=== PATIENT | female | born 2005 | race Caucasian/White ===

== ENCOUNTER 2024-09-04 19:01 | Emergency (ER) | payer OTHER, SELFPAY ==
--- NOTE | ~2024-09-04 | US_ITS ---
CLINICAL HISTORY: pain US pelvis transabdominal and transvaginal with Doppler Comparison: None Findings: Transabdominal scanning performed for overall anatomy. Transvaginal scanning performed for additional detail. Anteverted and anteflexed uterus is 7.8 cm length. Portions of the myometrium obscured by side of the artifacts. Imaged endometrium measures 1.2 cm thickness Right ovary measures 4.0 x 2.3 x 1.7 cm. Left ovary measures 3.9 x 2.2 x 2.0 cm. Small cystic structures of the both ovaries likely due to follicles. No significant free fluid in the partially imaged pelvis. Imaged urinary bladder is unremarkable. Doppler arterial waveform of the right ovary demonstrates peak systolic velocity of 12 centimeters/second and resistive index of 0.6. Doppler arterial waveform of the left ovary demonstrates peak systolic velocity of 8 centimeters/second and resistive index of 0.8, accounting for aliasing artifacts. IMPRESSION: 1. No ultrasound findings of ovarian torsion. 2. imaged endometrium measures 1.2 cm thickness at this time. This document has been electronically signed by: Zac Bruce MD on 09/04/2024 23:27:50
--- NOTE | ~2024-09-04 | XR_ITS ---
CLINICAL HISTORY: pain 1 view abdomen Comparison: None Findings: No small bowel dilatation in the imaged abdomen. Severe stool burden present, including imaged cecum. Posterior element lucency of the S1 is nonspecific and nonacute IMPRESSION: 1. No small bowel obstruction. 2. Severe stool burden. This document has been electronically signed by: Zac Bruce MD on 09/04/2024 20:07:43
[2024-09-04 19:15] VITALS: BP 129/86; PULSE 83; RESP 19; TEMP 36.6; O2SAT 98; BMI 18.9
--- NOTE | 2024-09-04 19:17 | ED.GENADULT ---
HPI - General Adult General Chief complaint: Abdominal Pain Stated complaint: ls abdominal pain, cyst on ovary Time Seen by Provider: 09/04/24 22:47 Source: patient Limitations: no limitations History of Present Illness ED Provider: Manuela Maurer PA-C HPI narrative: 18-year-old female with a history of ovarian cysts presents with the abdominal pain x5 days. Pain most prominent over left mid to lower abdomen, is nonradiating. No associated nausea vomiting. Denies constipation or diarrhea, no fever. Last bowel movement today. No new vaginal discharge, no dysuria. Related Data Allergies Allergy/AdvReac Type Severity Reaction Status Date / Time No Known Allergies Allergy Verified 09/04/24 19:18 Review of Systems Review of Systems: Yes all other systems are reviewed and are negative Constitutional: Constitutional: Denies fatigue and Denies fever(s) Cardiovascular: Cardiovascular: Denies chest pain and Denies dyspnea Respiratory: Respiratory: Denies dyspnea Gastrointestinal: Gastrointestinal: Reports abdominal pain, Denies constipation, Denies diarrhea, Denies nausea and Denies vomiting Genitourinary: Genitourinary: Denies dysuria, Reports pelvic pain and Denies vaginal discharge Endocrine: Endocrine: Denies fatigue PMFSH Social History Social History Advance Directives: No Advance Directives Information Provided: No Do you have a plan to hurt others: No Plan Physical Exam ED Vital Signs: Vital Signs - 24 hr 09/04/24 19:15 09/04/24 22:15 09/05/24 00:08 Temperature 98 F 97.8 F 97.9 F Pulse Rate 83 75 90 Respiratory Rate 19 15 18 Blood Pressure 129/86 130/67 109/60 Pulse Oximetry 98 100 100 Oxygen Delivery Method Room Air Room Air Room Air BMI result Body Mass Index 18.9 Course Course Course Narrative: RME, this is a rapid medical exam performed by Mode Lemon please refer to primary provider for complete H&P- 18 year old female presents for evaluation of left lower abdominal pain. She reports a history of ovarian cysts. Her pain is worse with movement. Denies associated symptoms including nausea, vomiting, diarrhea. Last bowel movement was reportedly today and was normal Medical Decision Making Medical Decision Making MDM Narrative: 18-year-old female with a history of ovarian cysts presents with the abdominal pain x5 days. Pain most prominent over left mid to lower abdomen, is nonradiating. No associated nausea vomiting. Denies constipation or diarrhea, no fever. Last bowel movement today. No new vaginal discharge, no dysuria. Problem: Ovarian cyst History: Per patient I have considered the following differential diagnoses: Torsion, PID, TOA, pancreatitis, constipation, bowel obstruction Plan: Screening labs, a KUB and transvaginal ultrasound were obtained from triage, the patient is constipated. She is not having any obstructive symptoms. We will send with home care instructions. I have independently reviewed the following tests: Labs: No leukocytosis, not anemic, no electrolyte abnormality, liver function tests normal, not , viral panel negative KUB: indings: No small bowel dilatation in the imaged abdomen. Severe stool burden present, including imaged cecum. Posterior element lucency of the S1 is nonspecific and nonacute IMPRESSION: 1. No small bowel obstruction. 2. Severe stool burden. Transvaginal ultrasound:IMPRESSION: 1. No ultrasound findings of ovarian torsion. 2. imaged endometrium measures 1.2 cm thickness at this time. Lab Data 09/04/24 19:35 09/04/24 19:35 Labs: Lab Results 09/04/24 Range/Units 19:35 WBC 6.3 (4.8-10.8) X10*3/uL RBC 4.15 L (4.20-5.50) X10*6/uL Hgb 12.8 (12.0-16.0) g/dl Hct 37.4 (37.0-47.0) % MCV 90.1 (80.0-98.0) fL MCH 30.8 (27.0-33.0) pg MCHC 34.2 (31.0-35.0) g/dl RDW 12.2 (11.0-16.0) % Plt Count 205 (160-400) X10*3/uL MPV 10.0 (9.4-12.3) fL Immature Gran % (Auto) 0.2 (0.0-0.4) % Neut % (Auto) 53.5 (45-73) % Lymph % (Auto) 37.4 (20-40) % Edmunds % (Auto) 5.9 (2-11) % Eos % (Auto) 1.6 (0-4) % Baso % (Auto) 1.4 (0-2) % Lymph # (Auto) 2.4 (1.2-4.9) X10*3/uL Edmunds # (Auto) 0.4 (0.1-1.2) X10*3/uL Eos # (Auto) 0.1 (0.0-0.4) X10*3/uL Baso # (Auto) 0.1 (0.0-0.2) X10*3/uL Abs Immat Gran (auto) 0.01 (0.00-0.03) X10*3/uL Absolute Neuts (auto) 3.4 (2.0-8.3) x10*3/uL Absolute Nucleated RBC 0.000 (0.0-0.012) X10*3/uL Nucleated RBC % (auto) 0.0 (0.0-0.2) /100WBC Sodium 140 (135-145) mmol/L Potassium 3.9 (3.3-5.1) mmol/L Chloride 111 H (96-108) mmol/L Carbon Dioxide 24 (22-29) mmol/L Anion Gap 9 L (12-20) BUN 8 L (9-16) mg/dL Creatinine 0.71 (0.5-1.4) mg/dL Estim Creat Clear Calc 100.4 Estimated GFR > 60 Random Glucose 96 (60-115) mg/dL Calcium 8.7 (8.4-10.2) mg/dL Total Bilirubin 0.4 (0.0-1.0) mg/dL AST 16 (5-31) U/L ALT 12 (0-31) U/L Alkaline Phosphatase 59 (39-117) U/L Total Protein 7.1 (6.5-8.0) g/dL Albumin 4.2 (3.5-5.0) g/dL Lipase 13 (8-78) U/L Beta HCG, Quant < 2 mIU/mL Urine Color Yellow Urine Appearance Clear Urine pH 7.0 (5.0-9.0) Ur Specific [place] 1.020 (1.005-1.025) Urine Protein Negative (Neg-Trace) mg/dL Urine Glucose (UA) Negative (Negative) mg/dL Urine Ketones Negative (Negative) mg/dL Urine Blood Negative (Negative) Urine Nitrite Negative (Negative) Ur Leukocyte Esterase Negative (Negative) Urine RBC 0-2 (0-2) /HPF Urine WBC 0-5 (0-5) /HPF Ur Squamous Epith Cells 0-2 (0-2) /HPF Urine Bacteria None Seen (None Seen) Hyaline Casts 0-2 (0-2) /LPF Discharge Plan Discharge Clinical Impression: Constipation Patient Disposition: Home, Self-Care Instructions: Constipation (ED) Additional Instructions: The pelvic ultrasound was normal, the x-ray revealed that you were considerably constipated. All of your screening labs including liver function testing, were all normal. See home care instructions. You need to use [id number] Colace, twice daily. You need to use [id number] MiraLax, has followed: Drink 1 cup every hour until you begin having multiple large volume bowel movements. Or you could gradually alleviate your constipation by drinking the MiraLax several times a day. Follow up with your primary care provider as needed. Stand Alone Forms: Work/School Release Print Language: Andorran
[2024-09-04 19:40] LABS: MANUAL DIFF FLAG NO
[2024-09-04 19:46] LABS: Appearance Urine Clear; Basophils Absolute Auto 0.1 X10*3/uL (0.0-0.2); Basophils Percent Auto 1.4 % (0-2); Color Urine Yellow; Eosinophils Absolute Auto 0.1 X10*3/uL (0.0-0.4); Eosinophils Percent Auto 1.6 % (0-4); Glucose Urine UA Negative (Negative); Hematocrit 37.4 % (37.0-47.0); Hemoglobin 12.8 g/dl (12.0-16.0); Imm Gran Abs Auto 0.01 X10*3/uL (0.00-0.03); Imm Gran Pct Auto 0.2 % (0.0-0.4); Leukocyte Esterase Urine Negative (Negative); Lymphocytes Absolute Auto 2.4 X10*3/uL (1.2-4.9); Lymphocytes Percent Auto 37.4 % (20-40); Mean Corpuscular HGB Conc 34.2 g/dl (31.0-35.0); Mean Corpuscular Hemoglobin 30.8 pg (27.0-33.0); Mean Corpuscular Volume 90.1 fL (80.0-98.0); Monocytes Absolute Auto 0.4 X10*3/uL (0.1-1.2); Monocytes Percent Auto 5.9 % (2-11); Neutrophils Absolute Auto 3.4 x10*3/uL (2.0-8.3); Neutrophils Percent Auto 53.5 % (45-73); Nitrite Urine Negative (Negative); Platelet Count 205 X10*3/uL (160-400); Red Blood Count 4.15 X10*6/uL (4.20-5.50); Red Cell Distribution Width 12.2 % (11.0-16.0); Urine Blood Negative (Negative); Urine Ketones Negative (Negative); Urine Protein Negative (Neg-Trace); White Blood Count 6.3 X10*3/uL (4.8-10.8)
[2024-09-04 20:00] LABS: Bacteria Urine None Seen (None Seen); Hyaline Casts Urine 0-2 /LPF (0-2); RBC Urine 0-2 /HPF (0-2); Squamous Epithelial Cell Urine 0-2 /HPF (0-2); WBC Urine 0-5 /HPF (0-5)
[2024-09-04 20:11] LABS: Alanine Aminotransferase 12 U/L (0-31); Albumin Level 4.2 g/dL (3.5-5.0); Alkaline Phosphatase 59 U/L (39-117); Anion Gap 9 (12-20); Aspartate Amino Transferase 16 U/L (5-31); Bilirubin Total 0.4 mg/dL (0.0-1.0); Blood Urea Nitrogen 8 mg/dL (9-16); Calcium 8.7 mg/dL (8.4-10.2); Carbon Dioxide 24 mmol/L (22-29); Chloride 111 mmol/L (96-108); Creatinine Clr Calc Pharmacy 100.4; Estimated Glomerular Filt Rate > 60; Glucose Random 96 mg/dL (60-115); Lipase 13 U/L (8-78); Potassium 3.9 mmol/L (3.3-5.1); Sodium 140 mmol/L (135-145); Total Protein 7.1 g/dL (6.5-8.0)
[2024-09-04 20:13] LABS: HCG Quantitative < 2 mIU/mL
[2024-09-04 22:15] VITALS: BP 130/67; PULSE 75; RESP 15; TEMP 36.6; O2SAT 100
--- OUTSIDE RECORDS SUMMARY | 2024-09-04 22:22 | XMS_ITS | Clinical Summary ---
Author Organization [facility] Address [address] [place] [phone] Phone Care Team Providers Care Carton Catcher Name Role Phone Provider, Rosaura MCCULLOUGH Primary Care Provider [phone] Allergies No known active allergies Medications ibuprofen 200 MG capsule Take 400 mg by mouth every 6 (six) hours as needed. Active acetaminophen 500 MG chewable tablet Chew 500 mg every 6 (six) hours as needed for mild pain. Active Needle, Disp, (B-D HYPODERMIC NEEDLE 18GX1.5 ) 18G X 1-/2 misc Inject 1 Units as directed every 7 days. 3 Active Needle, Disp, (BD Disp [place]) 25G X 5/8 misc Inject 1 Units as directed every 7 days. 3 Active testosterone cypionate 200 MG/ML injection Inject 40 mg under the skin once a week. 2 Active Syringe, Disposable, (B-D SYRINGE SLIP TIP 1CC) 1 ML misc Inject 1 Units as directed every 7 days. 3 Active B-D INTEGRA SYRINGE 25G X 5/8 3 ML misc USE DIRECTED TO INJECT TESTOSTERONE VIA SUBCUTANEOUS ROUTE 2 Active doxycycline 100 MG tablet TAKE 1 TABLET BY MOUTH TWICE A DAY FOR 7 DAYS 3 Active cephalexin 500 MG capsule TAKE 1 CAPSULE (ORAL) 3 TIMES PER DAY FOR 10 DAYS FOR INFECTION 2 Active Active Problems Problem Noted Date Diagnosed Date Vitamin D insufficiency 11/28/2021 Overview (12/05/2022): Last Assessment & Plan: Start over the counter Vitamin D 2,000 IU daily. Gender dysphoria in adolescent and adult 022 Overview (07/01/2021): refer Cy and his mom to the new [facility] for further exploration of gender affirming/ masculinizing medical therapy Patellofemoral syndrome of both knees 07/30/2020 Overview (03/02/2021): 07/2020: Suspeced and confirmed by ANGELO consult 01/2021- Recommend ibuprofen 400mg with food PRN and OTC knee supports for now, PT recommended by Ortho Acne vulgaris 05/06/2019 Overview (12/05/2022): Last Assessment & Plan: Continue CeraVe If acne is getting worse, call for prescription-strength medication Resolved Problems Problem Noted Date Diagnosed Date Resolved Date Dysmenorrhea in adolescent 05/06/2019 0 07/01/2021 Assessment & Plan (05/06/2019 6:52 PM EST): Supportive care for now with fluids and NSAIDS PRN. Mom to check with PGM regarding further details on blood clot history in PGF. Encounters Date Type Department Care Team Description 09/04/2024 7:01 PM EDT - Present Hospital Encounter [facility] - Patient Ping from Last 3 Months Immunizations Immunization Administration Dates Next Due DTaP 03/23/2010, 7,07/21/2005,05/17,02/17/2005 HPV Vaccine 9 Valent 03/28/2018,03/14/2017 Hep A, ped/adol 03/28/2018,03/14/2017 Hep B, ped/adol 07/17/2005,02/17/2005,2004 HiB 09/27/2006, 6,05/17/2005,02/17 IPV 03/23/2010, 6,05/17/2005,02/17 Influenza, injectable, quadr ivalent, preservative free 06/30/2021,03/08/2020 Influenza, injectable, trivalent 03/23/2010 MMR 03/23/2010,01/18/2006 Meningococcal Conj (Menactra) MCV4P 03/14/2017 Pneumococcal Conjugate 13-Valent 007,07/21/2005,05/17/2005,02/17 Tdap 03/14/2017 Varicella 03/23/2010,01/18/2006 Family History Medical History Relation Name Comments No Known Problems Father Alyssa No Known Problems Mother Brianna No Known Problems Sister 1 Jacquie No Known Problems Sister 2 chris Relation Name Status Comments Father Alyssa Alive Maternal Grandfather Manolo Redmond (Age 84) H eart Disease- leaky heart valves Maternal Grandmother Kala Redmond Kelly rice Mother Brianna Alive Sister 1 Jacquie Alive Sister 2 chris Alive Social History Tobacco Use Types Packs/Day Years Used Date Smoking Tobacco: Never Smokeless Tobacco: Never Hunger/Food Answer Date Recorded In the last 12 months, did y ou or your family ever eat less than you felt you should because there wasn't enough money for food? No 04/19/2019 Stable Housing Answer Date Recorded Are you worried that in the next 2 months you may not have stable housing? No 04/19/2019 Transportation Concerns Answer Date Rec orded In the last 12 months, have you or your family ever had to go without healthcare because you didn't have a way to get there? No 04/19/2019 Hazards in Home Answer Date Recorded Think about the place you li ve. Do you have problems with any of the following? Pests (mice or roaches), mold, no/not working smoke detectors, water leaks, no window guards. No 2018 Financing Utilities Answer Date Recorde d In the last 12 months, has t he electric, gas, oil, or water company threatened to shut off your services in your home? Yes 04/19/2019 Safety at Home Answer Date Recorded Are you or your family worried about feeling saf e in your home? No 04/19/2019 Outside Support Answer Date Recorded Do you feel that you need mo re support from other people or programs to help you care for yourself or your family? No 04/19/2019 Understanding Health Concerns Answer Da te Recorded Do you need help understandi ng your or your child's healthcare needs (diagnosis, medications, plan, etc.)? No 04/19/2019 Financing Health Concerns Answer Date R ecorded In the last 12 months, was t here a time when your child needed to see a doctor or get medications or supplies but could not because of cost? No 04/19/2019 Missing School or Work Answer Date Jordan rded Did you or your child miss s chool or work because of a health problem that could have been avoided? No 04/19/2019 Comments No Sex and Gender Information Value Date Recorded Sex Assigned at Not on file Legal Sex Female 3:34 PM EDT Gender Identity Not on file Sexual Orientation Not on file Last Filed Vital Signs Vital Sign Reading Time Taken Comments Blood Pressure 120/68 06/30/2021 2:50 PM EST Pulse 79 06/30/2021 2:50 PM EST Temperature 36.9 ??C (98.4 ??F) 12/06/2022 4:03 PM ED T Respiratory Rate - - Oxygen Saturation - - Inhaled Oxygen Concentration - - Weight 49.5 kg (109 lb 3.2 oz) 12/06/2022 4:03 P M EDT Height 160 cm (5' 3 ) 06/30/2021 2:50 PM EST Body Mass Index - - Plan of Treatment Health Maintenance Due Date Last Done Comments Men B Vaccine (1 of 2 - Standard) 2020 Influenza Vaccines (#1) 2024 06/30/19, 03/08/2020, 03/23/2010 COVID-19 Vaccine (3 - season) 2024 01/21/2021, 12/31/2020 Chlamydia and Gonorrhea Screening 06/26/2024 12/06/2022 DTaP,Tdap,and Td Vaccines (7 - Td or Tdap) 03/14/2027 03/14/2017, 03/23/2010, 09/27/2006, Additional history exists Hepatitis B Vaccines Completed 07/17/2005, 02/17/2005, 2004 HIB Vaccines Completed 09/27/2006, 06/27, 05/17/2005, Additional history exists Pneumococcal Vaccine Completed 09/27/2006, 07/21/2005, 05/17/2005, Additional history exists IPV Vaccines Completed 03/23/2010, 06/27, 05/17/2005, Additional history exists MMR Vaccines Completed 03/23/2010, 01/18/2006 Varicella Vaccines Completed 03/23/2010, 01/18/2006 Meningococcal Vaccine Aged Out 03/14/2017 No kristofer regina eligible based on patient's age to complete this topic HPV Vaccines Completed 03/28/2018, 03/14/2017 Hepatitis A Vaccines Completed 03/28/2018, 03/14/20 17 Procedures * The patient is currently admitted. The information in this section might not be complete until the patient is discharged.Due to [place] [employer] law, this organization might not be sharing sensitive test results. Procedure Name Priority Date/Time Associated Diagnosis Comments SURESWAB (ADV) VAGINITIS PLUS, TMA Routine 12/06/2022 5:02 PM EDT Vaginal discharge from Last 3 Months or Most Recently Relevant to Health Maintenance Results * Due to [place] [employer] law, this organization might not be sharing sensitive test results. * (ABNORMAL) SureSwab Advanced (TMA)- BV, CT/NG, Emeka, Trich (12/06/2022 5:02 PM EDT) BACTERIAL VAGINOSIS TEST POSITIVE(A) (NEG) [facility] Comment: Bacterial vaginosis targets by PCR detected in this patient's sample. ?? Note: This assay uses real time mobile home mechanic-mediated amplification (TMA) for detection and quantification of ribosomal RNA from bacteria associated with bacterial vaginosis (BV), including Lactobacillus (L. gasseri, L. crispatus, and L. jensenii), Gardnerella vaginalis, and Atopobium vaginae. Emeka Species NEGATIVE (NEG) [facility] Comment: No emeka species group (C. albicans, C. tropicalis, C. parapsilosis, C. dubliniensis) targets by PCR detected in this patient's sample. Emeka Glabrata, LANCE NEGATIVE (NEG) [facility] Comment:No Emeka glabrata targets by PCR detected in this patient's sample. SureSwab, T.vaginalis RNA NEGATIVE (NEG) [facility] Comment: No Trichomonas vaginalis targets by PCR detected in this patient's sample. ?? Note: This assay uses real time mobile home mechanic-mediated amplification (TMA) for detection and quantification of ribosomal RNA from organisms associated with Emeka species group (C. albicans, C. tropicalis, C. parapsilosis, C. dubliniensis), Emeka glabrata, and Trichomonas vaginalis. Chlamydia Trachomatis, Amplified NEGATIVE (NEG) [facility] Comment: No Chlamydia Trachomatis RNA detected in this patient's sample ? (REFERENCE RANGE/NORMAL VALUE: NOT DETECTED) ? Note: This test uses mobile home mechanic- mediated amplification method to detect rRNA from C. Trachomatis N.GONORRHOEAE AMP PROBE NEGATIVE (NEG) [facility] Comment: No Neisseria Gonorrhoeae RNA detected in this patient's sample ? (REFERENCE RANGE/NORMAL VALUE: NOT DETECTED) ? NOTE: This test uses mobile home mechanic-mediated amplification method to detect rRNA from N.Gonorrhoeae. A negative result does not preclude infection. In the case of a negative urine result, testing of an endocervical(female) or urethral (male) specimen is recommended if there is high clinical suspicion of infection. Due to very high sensitivity of Nucleic Acid Amplification Test, false positive results may occur. Therefore, specimen handling is extremely important. In patients in whom the disease is unlikely, additional sample for testing should be considered after an initial positive result. The performance characteristics of this test have not been evaluated in children. The Aptima Combo2 assay is not intended for the evaluation of suspected sexual abuse or for other medico-legal indications. The ordering provider should assess if the patient had consensual sex without risk of sexual abuse. Consult the [facility] if needed. Contact phone number . Therapeutic failure or success cannot be determined with the Aptima Combo2 assay since nucleic acid may persist following appropriate antimicrobial therapy. The Centers for Disease Control and Prevention (CDC) recommends confirmatory retesting using culture or a different nucleic acid amplification test when positive results occur, if indicated. Testing performed or reported by [facility], a Service of [facility], [facility] [address], [place] [address] Vince Hamilton MD, Telegraph Operator [facility]# [id number] Swab (Vagina) 12/06/2022 5:0 2 PM EDT 12/06/2022 11:47 PM EDT Anita Peña MD LAB MICROBIOLOGY - GENERAL OR DERABLES Final Result DARRION from Last 3 Months or Most Recently Relevant to Health Maintenance Insurance [employer] Care Teams Carton Catcher Relationship Specialty Start Date End Date Provider, MD Rosaura [address] [place] [phone] PCP - General Pediatrics 02/01/23
[2024-09-05 00:08] VITALS: BP 109/60; PULSE 90; RESP 18; TEMP 36.6; O2SAT 100
[2024-09-05 01:38] VITALS: BP 109/60; PULSE 90; RESP 18; TEMP 36.6; O2SAT 100
== END 2024-09-05 01:39 | disposition home or self-care (01) ==
PROVIDERS: Physician Assistant; Emergency Provider Emergency Medicine Emergency Medical Services
DX: K59.00 Constipation, unspecified (principal); N83.202 Unspecified ovarian cyst, left side; R10.2 Pelvic and perineal pain; R10.32 Left lower quadrant pain; Z79.899 Other long term (current) drug therapy
CPT/HCPCS: 36415; 74018; 76830; 76856; 80053; 81001; 83690; 84702; 85025; 93975; 99283; 99284

== ENCOUNTER → 2024-09-04 19:19 | Outpatient (BNV) | payer SELFPAY | PROVIDERS: Visit Provider Radiology Neuroradiology | DX: K56.41 Fecal impaction (principal) | CPT/HCPCS: 74018 ==

== ENCOUNTER 2024-12-20 18:01 | Inpatient (IN) | payer OTHER, SELFPAY ==
--- NOTE | ~2024-12-20 | CT_ITS ---
CLINICAL HISTORY: rlq pain, ? appy --- Additional Notes or Special Instructions: PT IV INFILTRATED CT abdomen and pelvis without contrast Comparison: CR - XR KUB - 09/04/24 19:41 EDT US - US PELVIC OVARIAN DOPPLER - 09/04/24 19:31 EDT Findings: Study limited by lack of intravenous contrast. Specifically, evaluation of the vascular tree, solid abdominal organs, and gastrointestinal tract be limited without IV contrast. This is especially true given the clinical history provided of right lower quadrant abdominal pain with concern for appendicitis. The enhancement schema of the appendiceal wall can not be assessed on a noncontrast study. CT abdomen: Lung bases are clear. [id number] convex left thoracolumbar curvature with minor convex right lower lumbar curvature. No acute bony abnormality identified. No calcified gallstones. Unenhanced liver, spleen, pancreas, adrenal glands, and kidneys are unremarkable for acute findings given the limitation of mild patient motion during imaging of the midabdomen. Small bowel loops are of normal caliber. No free fluid or free air. CT pelvis: Images of the upper pelvis are also limited by patient motion. As seen on the patient's prior abdominal radiographs, there is prominent stool throughout the colon. Wall thickening of the distal transverse colon extending into the splenic flexure. Sixteen throughout the descending colon to the proximal sigmoid colon. No focal area of diverticulitis is evident. The appendix is suboptimally visualized. There is a tubular structure within the right lower quadrant which I believe is the appendix. Small increased density seen within the appendix suggests a 2 mm appendicolith. Appendix measures 5.8 mm in transverse measurement. No focal inflammatory stranding is seen within the mesenteric fat within the right lower quadrant. No free air. Small amount of free fluid in the posterior cul-de-sac. IMPRESSION: 1. Study limited by lack of intravenous contrast. 2. Equivocal findings of appendicitis. Although an appendicolith is identified within the appendix, there is no significant appendiceal dilation, and no adjacent inflammatory stranding is evident. Consider repeat CT of the abdomen and pelvis with intravenous contrast for further evaluation if there is persistent clinical concern for appendicitis. Specifically, the enhancement schema of the appendiceal wall can be assessed on a postcontrast study which can aid in the evaluation of appendicitis. 3. Prominent colonic stool with long segment colitis extending from the distal transverse colon to the proximal sigmoid colon. Please note that this is on the contralateral side from the patient's reported pain. Clinical correlation advised. This document has been electronically signed by: Adan Cervantes MD on 12/20/2024 21:37:27
[2024-12-20 18:26] VITALS: BP 120/52; PULSE 92; RESP 16; TEMP 37; O2SAT 100; BMI 20.6
--- NOTE | 2024-12-20 18:27 | ED.ABDPAIN ---
HPI - Abdominal Pain General Chief Complaint: Abdominal Pain Stated Complaint: lower right abd pain Time Seen by Provider: 12/20/24 19:34 History of Present Illness HPI narrative: Patient is a 18-year-old female presents today with having abdominal pain. Initially began in the epigastric periumbilical area then moved to the right lower quadrant. The pain started at approximately 15:30. Patient denies any fever chills. Denies any vaginal bleeding no vaginal discharge. Patient is from home. No coughing or congestion or upper respiratory symptoms. Positive decreased p.o. intake. No change in bowel movement. No chest pain or shortness of breath no diaphoresis. Patient is from home. Related Data Allergies Allergy/AdvReac Type Severity Reaction Status Date / Time No Known Allergies Allergy Verified 12/20/24 18:28 Review of Systems Review of Systems Positive decreased appetite Yes all other systems are reviewed and are negative [facility] [place] Past Medical History Attestation statement: The following information was validated with the patient. Social History Social History Advance Directives: No Advance Directives Information Provided: Yes Do you have a plan to hurt others: No Plan Physical Exam ED Vital Signs: Vital Signs - 24 hr 12/20/24 18:26 12/20/24 21:24 Temperature 98.6 F 98.0 F Pulse Rate 92 78 Respiratory Rate 16 16 Blood Pressure 120/52 L 116/68 Pulse Oximetry 100 98 Oxygen Delivery Method Room Air Room Air BMI result Body Mass Index 20.6 Appearance: Alert. Oriented X3. No acute distress. Eyes: Pupils equal, round and reactive to light. ENT: Pharynx normal. Neck: Normal inspection. Neck supple. No lymph nodes noted. No crepitus CVS: Normal heart rate and rhythm. Pulses normal. Normal S1 and S2 Respiratory: No respiratory distress. Breath sounds normal. No Wheezing. No rales Abdomen: Mild right lower quadrant tenderness no rebound No rigidity. No distention. good BS x4 Skin: Skin warm and dry. Normal skin color. Normal skin turgor. Extremities: No lower extremity edema. Neurovascular intact to all extremities. No Lacerations. No Rash Neuro: Oriented X 3. No motor deficit. No sensory deficit. Moving all extermities. No slurred speech Course Course Course Narrative: 12/20/24 093 SCOTT Guadalupe This is a Rapid Medical Examination (RME) performed by Yemi Denny PA-C in triage. Full HPI, ROS, assessment and treatment plan per primary provider in the Main ED. Hx: 18 yo F here for eval of RLQ pain that began around 1515 today. no radiation. no urinary sx. having regular BMs. Plan: labs, UA, u preg Medical Decision Making Medical Decision Making [facility] Narrative: Patient's CT was equivocal for appendicitis. Radiology's report there is appendicolith in the appendix but there is no gross inflammation she does have a white count of 16. He had pain that was periumbilical then moved to the right lower quadrant but her exam was not impressive. Her abdomen was soft. I discussed the case with the surgeon. She reviewed the CT scan. Will admit patient for observation. Patient in no distress. The CT abdomen pelvis was done with IV contrast but unfortunately the IV infiltrated. The contrast got into her arm and not in her abdomen. Will worry about giving her another bolus of CT contrast another CT. Decided to observe her instead. Patient to be admitted Differential Diagnosis Differential Diagnoses: The differential diagnosis associated with the presentation includes Appendicitis, viral illness, Admission/Observation Consideration of admission/observation: Escalation of care including admission/observation considered Consult Healthcare Provider Management of the patient was discussed with: Health Claims Examiner (Surgery) Lab Data [facility] Lab Attestation statement: I reviewed the patient's lab results. 12/20/24 18:57 12/20/24 18:57 Labs: Lab Results 12/20/24 12/20/24 Range/Units 18:57 19:02 WBC 16.2 H (4.8-10.8) X10*3/uL RBC 4.16 L (4.20-5.50) X10*6/uL Hgb 13.2 (12.0-16.0) g/dl Hct 36.8 L (37.0-47.0) % MCV 88.5 (80.0-98.0) fL MCH 31.7 (27.0-33.0) pg MCHC 35.9 H (31.0-35.0) g/dl RDW 12.5 (11.0-16.0) % Plt Count 221 (160-400) X10*3/uL MPV 10.3 (9.4-12.3) fL Immature Gran % (Auto) 0.5 H (0.0-0.4) % Neut % (Auto) 81.2 H (45-73) % Lymph % (Auto) 13.7 L (20-40) % [place] % (Auto) 3.8 (2-11) % Eos % (Auto) 0.4 (0-4) % Baso % (Auto) 0.4 (0-2) % Lymph # (Auto) 2.2 (1.2-4.9) X10*3/uL [place] # (Auto) 0.6 (0.1-1.2) X10*3/uL Eos # (Auto) 0.1 (0.0-0.4) X10*3/uL Baso # (Auto) 0.1 (0.0-0.2) X10*3/uL Abs Immat Gran (auto) 0.08 H (0.00-0.03) X10*3/uL Absolute Neuts (auto) 13.1 H (2.0-8.3) x10*3/uL Absolute Nucleated RBC 0.000 (0.0-0.012) X10*3/uL Nucleated RBC % (auto) 0.0 (0.0-0.2) /100WBC Sodium 139 (135-145) mmol/L Potassium 3.9 (3.3-5.1) mmol/L Chloride 109 H (96-108) mmol/L Carbon Dioxide 24 (22-29) mmol/L Anion Gap 10 L (12-20) BUN 7 L (9-16) mg/dL Creatinine 0.75 (0.5-1.4) mg/dL Estim Creat Clear Calc 103.6 Estimated GFR > 60 Random Glucose 91 (60-115) mg/dL Calcium 8.9 (8.4-10.2) mg/dL Magnesium 1.7 (1.6-2.6) mg/dL Total Bilirubin 0.3 (0.0-1.0) mg/dL AST 15 (5-31) U/L ALT 9 (0-31) U/L Alkaline Phosphatase 49 (39-117) U/L C-Reactive Protein 0.10 (< or = 0.50) mg/dL Total Protein 6.8 (6.5-8.0) g/dL Albumin 4.1 (3.5-5.0) g/dL Urine Color Yellow Urine Appearance Clear Urine pH 5.5 (5.0-9.0) Ur Specific [place] 1.020 (1.005-1.025) Urine Protein Negative (Neg-Trace) mg/dL Urine Glucose (UA) Negative (Negative) mg/dL Urine Ketones Negative (Negative) mg/dL Urine Blood Trace H (Negative) Urine Nitrite Negative (Negative) Ur Leukocyte Esterase Trace H (Negative) Urine RBC 0-2 (0-2) /HPF Urine WBC 0-5 (0-5) /HPF Ur Squamous Epith Cells 0-2 (0-2) /HPF Urine Bacteria None Seen (None Seen) Hyaline Casts 0-2 (0-2) /LPF Urine Test NEGATIVE (NEGATIVE) Radiology Impression Discussion of test interpretation with radiology: I have reviewed the radiologist's reading. Social Determinants Patient?s care significantly limited by Social Determinants of Health including: Problems related to primary support group Medications Administered Discontinued Medications Generic Name Dose Route Start Last Admin Trade Name Keren PRN Reason Stop Dose Admin Sodium Chloride 1,000 mls @ 999 mls/hr 12/20/24 20:15 12/20/24 21:36 Ns IV 12/20/24 21:15 999 mls/hr .Q1H1M MADISYN Administration Iohexol 100 ml 12/20/24 20:23 12/20/24 20:24 Iohexol 350 Mg/Ml 100 Ml Infus..Btl IV 12/20/24 20:24 85 ml ONCE ONE Administration Ketorolac Tromethamine 15 mg 12/20/24 20:07 12/20/24 21:36 Ketorolac Tromethamine 15 Mg/Ml Vial IVPUSH 12/20/24 20:08 15 mg ONCE ONE Administration Ondansetron HCl 4 mg 12/20/24 19:49 12/20/24 19:54 Ondansetron Hcl 4 Mg/2 Ml Vial IVPUSH 12/20/24 19:50 4 mg ONCE ONE Administration Discharge Plan Discharge Clinical Impression: Acute appendicitis Patient Disposition: Admitted As Inpatient Print Language: Turkmen
[2024-12-20 19:01] LABS: MANUAL DIFF FLAG NO
[2024-12-20 19:08] LABS: Appearance Urine Clear; Color Urine Yellow; Glucose Urine UA Negative (Negative); Leukocyte Esterase Urine Trace (Negative); Nitrite Urine Negative (Negative); PH 5.5 (5.0-9.0); UMIC TRIGGER UACC YES; Urine Blood Trace (Negative); Urine Ketones Negative (Negative); Urine Protein Negative (Neg-Trace)
[2024-12-20 19:09] LABS: UPreg QC Valid YES; Urine Pregnancy NEGATIVE (NEGATIVE)
[2024-12-20 19:16] LABS: Alanine Aminotransferase 9 U/L (0-31); Albumin Level 4.1 g/dL (3.5-5.0); Alkaline Phosphatase 49 U/L (39-117); Anion Gap 10 (12-20); Aspartate Amino Transferase 15 U/L (5-31); Bilirubin Total 0.3 mg/dL (0.0-1.0); Blood Urea Nitrogen 7 mg/dL (9-16); Calcium 8.9 mg/dL (8.4-10.2); Carbon Dioxide 24 mmol/L (22-29); Chloride 109 mmol/L (96-108); Creatinine Clr Calc Pharmacy 103.6; Estimated Glomerular Filt Rate > 60; Glucose Random 91 mg/dL (60-115); Magnesium 1.7 mg/dL (1.6-2.6); Potassium 3.9 mmol/L (3.3-5.1); Sodium 139 mmol/L (135-145); Total Protein 6.8 g/dL (6.5-8.0)
[2024-12-20 19:19] LABS: Basophils Absolute Auto 0.1 X10*3/uL (0.0-0.2); Basophils Percent Auto 0.4 % (0-2); Eosinophils Absolute Auto 0.1 X10*3/uL (0.0-0.4); Eosinophils Percent Auto 0.4 % (0-4); Hematocrit 36.8 % (37.0-47.0); Hemoglobin 13.2 g/dl (12.0-16.0); Imm Gran Abs Auto 0.08 X10*3/uL (0.00-0.03); Imm Gran Pct Auto 0.5 % (0.0-0.4); Lymphocytes Absolute Auto 2.2 X10*3/uL (1.2-4.9); Lymphocytes Percent Auto 13.7 % (20-40); Mean Corpuscular HGB Conc 35.9 g/dl (31.0-35.0); Mean Corpuscular Hemoglobin 31.7 pg (27.0-33.0); Mean Corpuscular Volume 88.5 fL (80.0-98.0); Mean Platelet Volume 10.3 fL (9.4-12.3); Monocytes Absolute Auto 0.6 X10*3/uL (0.1-1.2); Monocytes Percent Auto 3.8 % (2-11); Neutrophils Absolute Auto 13.1 x10*3/uL (2.0-8.3); Neutrophils Percent Auto 81.2 % (45-73); Platelet Count 221 X10*3/uL (160-400); Red Blood Count 4.16 X10*6/uL (4.20-5.50); Red Cell Distribution Width 12.5 % (11.0-16.0); White Blood Count 16.2 X10*3/uL (4.8-10.8)
[2024-12-20 19:20] LABS: Bacteria Urine None Seen (None Seen); Hyaline Casts Urine 0-2 /LPF (0-2); RBC Urine 0-2 /HPF (0-2); Squamous Epithelial Cell Urine 0-2 /HPF (0-2); WBC Urine 0-5 /HPF (0-5)
[2024-12-20] MEDS: ondansetron HCL 4 MG/2 ML VIAL IVPUSH (19:54)
[2024-12-20] MEDS: iohexoL 350 MG/ML 100 ML INFUS..BTL IV (20:24)
[2024-12-20 21:24] VITALS: BP 116/68; PULSE 78; RESP 16; TEMP 36.7; O2SAT 98
[2024-12-20] MEDS: 0.9 % Sodium Chloride 1,000 ML 999 ML IV (21:36)
[2024-12-20] MEDS: Ketorolac Tromethamine 15 MG/ML VIAL IVPUSH (21:36)
--- NOTE | 2024-12-20 23:00 | PC.NURSE ---
Assumed care of patient at 23:00. Patient is alert and oriented x4, VSS. Patient reports 20 G US guided IV line in right upper arm infiltrated during CT scan with IV contrast leaking into the tissue. Patient reports increasing edema and pain in right upper arm., Patient states that pervious shift RN gave her heat packs with no improvement. This RN elevated patient's arm on 2 pillows and applied ice pack to affected area. Patient reports some improvement in pain. Patient's parent's at bedside, call [place] within patient's reach. Patient informed of NPO status, patient verbalized understanding.
[2024-12-21] VITALS (12 sets, daily range): BP systolic 105–131; BP diastolic 51–75; PULSE 69–100; RESP 15–20; TEMP 36.2–37.2; O2SAT 97–100
[2024-12-21] MEDS: Ketorolac Tromethamine 15 MG/ML VIAL IVPUSH (00:02)
[2024-12-21] MEDS: cefTRIAXone sodium 2 GM VIAL IVPUSH (00:02)
[2024-12-21] MEDS: ondansetron HCL 4 MG/2 ML VIAL IVPUSH ×2 (00:02→11:15)
[2024-12-21] MEDS: metroNIDAZOLE/NS 500 MG/100 ML PIGGYBACK 100 MG IV (00:02)
--- NOTE | 2024-12-21 00:37 | PC.NURSE ---
Per Dr. Ascencio, VBD for blood cultures and lactic is not needed prior IV antibiotics administration. Patient medicated per AUG.
[2024-12-21] MEDS: 0.9 % Sodium Chloride 1,000 ML 100 ML IVCONT ×3 (01:37→21:25)
[2024-12-21 04:05] LABS: MANUAL DIFF FLAG NO
[2024-12-21 04:07] LABS: Basophils Absolute Auto 0.1 X10*3/uL (0.0-0.2); Basophils Percent Auto 0.5 % (0-2); Eosinophils Percent Auto 0.1 % (0-4); Hematocrit 31.1 % (37.0-47.0); Imm Gran Abs Auto 0.03 X10*3/uL (0.00-0.03); Imm Gran Pct Auto 0.3 % (0.0-0.4); Lymphocytes Absolute Auto 2.2 X10*3/uL (1.2-4.9); Lymphocytes Percent Auto 21.3 % (20-40); Mean Corpuscular HGB Conc 35.4 g/dl (31.0-35.0); Mean Corpuscular Hemoglobin 30.8 pg (27.0-33.0); Mean Corpuscular Volume 87.1 fL (80.0-98.0); Mean Platelet Volume 10.4 fL (9.4-12.3); Monocytes Absolute Auto 0.5 X10*3/uL (0.1-1.2); Monocytes Percent Auto 4.5 % (2-11); Neutrophils Absolute Auto 7.5 x10*3/uL (2.0-8.3); Neutrophils Percent Auto 73.3 % (45-73); Platelet Count 186 X10*3/uL (160-400); Red Blood Count 3.57 X10*6/uL (4.20-5.50); Red Cell Distribution Width 12.3 % (11.0-16.0); White Blood Count 10.2 X10*3/uL (4.8-10.8)
--- NOTE | 2024-12-21 08:20 | PHA.MEDREC ---
Addendum entered by Sierra George RPh 12/21/24 08:41: Reviewed by [facility] within [facility] Original Note: Pharmacy Consult ? Medication Reconciliation Pharmacy has completed the medication reconciliation. Spoke with patient to confirm.
[2024-12-21] MEDS: Piperacillin Sodium/Tazobactam 3.375 GM in 0.9 % Sodium Chloride 50 ML IV ×3 (11:15→22:42)
[2024-12-21] MEDS: Acetaminophen 325 MG TABLET 650 MG PO (11:16)
--- NOTE | 2024-12-21 15:32 | MHC.CM.PN ---
Patient's preferred name is Cy. Lives in a home w/ parents. Functionally independent. Denies use of DME or services. No current PCP. Has an appt scheduled for mid February with a provider in [place]. Completed HCP naming [facility] 1) boyfriend Zach Vidal [phone] and 2) sister Anjali Reina [phone]. DP: Home self care. Family transport. CM will continue to follow.
[2024-12-21] MEDS: 0.9 % Sodium Chloride Flush 3 ML SYRINGE IVFLUSH ×2 (16:52)
--- NOTE | 2024-12-21 17:29 | P.HPGS_ITS ---
History of Present Illness History of Present Illness Date of Service: 12/21/24 Chief complaint: Abdominal Pain Narrative: Toña Maher (CY) is a 18 year old female who comes in with a day history of pain which started at her umbilical area and then migrated to her right lower quadrant. She also was nauseated. She has never had pain like this before. She said history of ovarian cysts which have ruptured but she says this pain is different. She denies any trauma to the area no unusual diarrhea constipation. No unusual diet. In the emergency room her white count is elevated and CT scan of her abdomen and pelvis shows signs consistent of possible early appendicitis with a fecalith in the appendix and slightly dilated tip. Review of Systems Review of Systems: Yes all other systems are reviewed and are negative PMFSH Social History Social History Household Members: Family and Other Household Members Other:: mother and father Housing: Apartment Do you presently have visiting nurse or other home services: No Patient Tobacco Use Status: Never used Tobacco Currently Displaying Signs/Symptoms of Drug Intoxication Withdrawal: No Have you been hit, kicked, punched, or otherwise hurt by someone within the past year? If so, by whom?: No Do you feel safe in your current relationship?: Yes Is there a partner from a previous relationship who is making you feel unsafe now?: No Are you made to feel afraid or neglected: No Advance Directives: No Advance Directives Information Provided: Yes Do you have a plan to hurt others: No Plan Recently lost weight without trying: No Nutrition Risks: No Nutritional Risk Patient : No : No Poor oral hygiene: No service: No Meds Allergies Allergy/AdvReac Type Severity Reaction Status Date / Time No Known Allergies Allergy Verified 12/20/24 18:28 Active Medications: Current Medications Acetaminophen (Acetaminophen 325 Mg Tablet) 650 mg PO Q6H PRN PRN Reason: Pain, Mild 1-3,fever,headache Last Admin: 12/21/24 11:16 Dose: 650 mg Sodium Chloride (Ns) 1,000 mls @ 100 mls/hr IVCONT .Q10H MADISYN Last Admin: 12/21/24 11:25 Dose: 100 mls/hr Piperacillin Sod/Tazobactam (Sod 3.375 gm/ Sodium Chloride) 50 mls @ 100 mls/hr IV Q6H [facility] Last Admin: 12/21/24 16:52 Dose: 100 mls/hr Ondansetron HCl (Ondansetron Hcl 4 Mg/2 Ml Vial) 4 mg IVPUSH Q8H PRN PRN Reason: Nausea and Vomiting Last Admin: 12/21/24 11:15 Dose: 4 mg Sodium Chloride (0.9 % Sodium Chloride Flush 3 Ml Syringe) 3 ml IVFLUSH QSHIFT [facility] Last Admin: 12/21/24 16:52 Dose: 3 ml Home Medications ?Medication ?Instructions ?Recorded ?Confirmed ?Last Taken ?Type norethindrone 1 mg-ethinyl 1 tab PO DAILY 12/21/2412/20/24 History estradiol 20 mcg (21)-iron 75 mg (7) tablet (07/15 ()) Physical Exam Vital Signs: Vital Signs: Last Vital Signs Temp 98.0 F 12/21/24 15:23 Pulse 76 12/21/24 15:23 Resp 16 12/21/24 15:23 BP 105/51 L 12/21/24 15:23 Pulse Ox 98 12/21/24 15:23 O2 Del Method Room Air 12/21/24 15:23 BMI result Body Mass Index 20.6 Const: General: cooperative, healthy appearing, comfortable and no acute distress Nutritional Appearance: thin HEENT: Head: Yes normal to inspection Resp: Effort & Inspection: normal respiratory effort Auscultation: clear to auscultation bilaterally Cardio: Rate: regular rate Rhythm: regular rhythm GI: Other: Abdomen is soft nondistended tender in the right lower quadrant with some mild guarding no rebound no peritoneal signs active bowel sounds no masses Skin: Other: Nonicteric General skin exam: no rashes or lesions noted Psych: Appearance: grossly normal Mental Status: mental status grossly normal Speech and movement: Normal speech and movement present Affect: normal affect Thought process: Normal thought process present Thought content: Normal thought content present Insight: Good insight present (Psych) Judgement: Good judgement present (Psych) Results Results Labs: Short CBC 12/20/24 12/21/24 Range/Units 18:57 03:53 WBC 16.2 H 10.2 (4.8-10.8) X10*3/uL Hgb 13.2 11.0 L (12.0-16.0) g/dl Hct 36.8 L 31.1 L (37.0-47.0) % Plt Count 221 186 (160-400) X10*3/uL BMP 12/20/24 18:57 Sodium 139 Potassium 3.9 Chloride 109 H Carbon Dioxide 24 BUN 7 L Creatinine 0.75 Calcium 8.9 Liver Function 12/20/24 Range/Units 18:57 Total Bilirubin 0.3 (0.0-1.0) mg/dL AST 15 (5-31) U/L ALT 9 (0-31) U/L Alkaline Phosphatase 49 (39-117) U/L Albumin 4.1 (3.5-5.0) g/dL Urine 12/20/24 Range/Units 19:02 Urine Color Yellow Urine Appearance Clear Urine pH 5.5 (5.0-9.0) Ur Specific [place] 1.020 (1.005-1.025) Urine Protein Negative (Neg-Trace) mg/dL Urine Glucose (UA) Negative (Negative) mg/dL Urine Test NEGATIVE (NEGATIVE) Abdomen CT scan report/results: report reviewed and image reviewed CT scan - pelvis: report reviewed and image reviewed Additional studies: Patient: Toña Maher (CY) MR#: [id number] : 2005 Acct:[id number] Age/Sex: 18 / F ADM Date: 12/20/24 Loc: .ED Attending Dr: Ordering Physician: Stephie Andrews MD Date of Service: 12/20/24 Procedure(s): CT abdomen pelvis wo IV con Accession Number(s): [id number] cc: Stephie Andrews MD; Physician,Unknown ~ Report Number: [id number]: Total DLP = 0.00 mGy-cm CLINICAL HISTORY: rlq pain, ? appy --- Additional Notes or Special Instructions: PT IV INFILTRATED CT abdomen and pelvis without contrast Comparison: CR - XR KUB - 09/04/24 19:41 EDT US - US PELVIC OVARIAN DOPPLER - 09/04/24 19:31 EDT Findings: Study limited by lack of intravenous contrast. Specifically, evaluation of the vascular tree, solid abdominal organs, and gastrointestinal tract be limited without IV contrast. This is especially true given the clinical history provided of right lower quadrant abdominal pain with concern for appendicitis. The enhancement schema of the appendiceal wall can not be assessed on a noncontrast study. CT abdomen: Lung bases are clear. [id number] convex left thoracolumbar curvature with minor convex right lower lumbar curvature. No acute bony abnormality identified. No calcified gallstones. Unenhanced liver, spleen, pancreas, adrenal glands, and kidneys are unremarkable for acute findings given the limitation of mild patient motion during imaging of the midabdomen. Small bowel loops are of normal caliber. No free fluid or free air. CT pelvis: Images of the upper pelvis are also limited by patient motion. As seen on the patient's prior abdominal radiographs, there is prominent stool throughout the colon. Wall thickening of the distal transverse colon extending into the splenic flexure. Sixteen throughout the descending colon to the proximal sigmoid colon. No focal area of diverticulitis is evident. The appendix is suboptimally visualized. There is a tubular structure within the right lower quadrant which I believe is the appendix. Small increased density seen within the appendix suggests a 2 mm appendicolith. Appendix measures 5.8 mm in transverse measurement. No focal inflammatory stranding is seen within the mesenteric fat within the right lower quadrant. No free air. Small amount of free fluid in the posterior cul-de-sac. IMPRESSION: 1. Study limited by lack of intravenous contrast. 2. Equivocal findings of appendicitis. Although an appendicolith is identified within the appendix, there is no significant appendiceal dilation, and no adjacent inflammatory stranding is evident. Consider repeat CT of the abdomen and pelvis with intravenous contrast for further evaluation if there is persistent clinical concern for appendicitis. Specifically, the enhancement schema of the appendiceal wall can be assessed on a postcontrast study which can aid in the evaluation of appendicitis. 3. Prominent colonic stool with long segment colitis extending from the distal transverse colon to the proximal sigmoid colon. Please note that this is on the contralateral side from the patient's reported pain. Clinical correlation advised. This document has been electronically signed by: Adan Cervantes MD on 12/20/2024 21:37:27 Dictated By: Adan Cervantes MD Signed By: <Electronically signed by Adan Cervantes MD in [place]> 12/20/242137 DD/ 36 TD/TT: 12/20/242136 [employer] Data Entry: Assessment and Plan (1) Acute appendicitis: Status: Acute Plan 18-year-old female with the acute appendicitis plan is to admit NPO IV antibiotics and to the OR for laparoscopic appendectomy. Risks and benefits were discussed with the patient including but not limited to bleeding infection possible bowel injury possible abscess or leak and despite this she was just to proceed Quality Stroke Does the patient have a stroke diagnosis?: No VTE Prior VTE?: No VTE Risk Level:: Surgical - low VTE Device Contraindication: N/A - Device Ordered VTE Drug Contraindication: Treatment Not Indicated Procedures Date of Service Date of Service: 12/21/24
[2024-12-21] MEDS: Scopolamine 1.5 MG PATCH.TD.3 EAR-BEHIND (17:33)
--- NOTE | 2024-12-21 17:41 | P.CONAN_ITS ---
[facility] Active Problems Active Problems: All Active Problems Acute appendicitis (Acute) Family History Family history of problems with anesthesia: No Surgical History History of Problems with Anesthesia: No Social History Social History Household Members: Family and Other Household Members Other:: mother and father Housing: Apartment Do you presently have visiting nurse or other home services: No Patient Tobacco Use Status: Never used Tobacco Currently Displaying Signs/Symptoms of Drug Intoxication Withdrawal: No Have you been hit, kicked, punched, or otherwise hurt by someone within the past year? If so, by whom?: No Do you feel safe in your current relationship?: Yes Is there a partner from a previous relationship who is making you feel unsafe now?: No Are you made to feel afraid or neglected: No Advance Directives: No Advance Directives Information Provided: Yes Do you have a plan to hurt others: No Plan Recently lost weight without trying: No Nutrition Risks: No Nutritional Risk Patient : No : No Poor oral hygiene: No service: No Meds Allergies Allergy/AdvReac Type Severity Reaction Status Date / Time No Known Allergies Allergy Verified 12/20/24 18:28 Active Medications: Current Medications Acetaminophen (Acetaminophen 325 Mg Tablet) 650 mg PO Q6H PRN PRN Reason: Pain, Mild 1-3,fever,headache Last Admin: 12/21/24 11:16 Dose: 650 mg Sodium Chloride (Ns) 1,000 mls @ 100 mls/hr IVCONT .Q10H [facility] Last Admin: 12/21/24 11:25 Dose: 100 mls/hr Piperacillin Sod/Tazobactam (Sod 3.375 gm/ Sodium Chloride) 50 mls @ 100 mls/hr IV Q6H [facility] Last Admin: 12/21/24 16:52 Dose: 100 mls/hr Ondansetron HCl (Ondansetron Hcl 4 Mg/2 Ml Vial) 4 mg IVPUSH Q8H PRN PRN Reason: Nausea and Vomiting Last Admin: 12/21/24 11:15 Dose: 4 mg Sodium Chloride (0.9 % Sodium Chloride Flush 3 Ml Syringe) 3 ml IVFLUSH QSHIFT [facility] Last Admin: 12/21/24 16:52 Dose: 3 ml Home Medications ?Medication ?Instructions ?Recorded ?Confirmed ?Last Taken ?Type norethindrone 1 mg-ethinyl 1 tab PO DAILY 12/21/2412/20/24 History estradiol 20 mcg (21)-iron 75 mg (7) tablet (07/15 (28)) Exam Height,Weight and Vital Signs: Height 5 ft 4 in Weight 54.431 kg Last Vital Signs Temp 98.0 F 12/21/24 15:23 Pulse 76 12/21/24 15:23 Resp 16 12/21/24 15:23 BP 105/51 L 12/21/24 15:23 Pulse Ox 98 12/21/24 15:23 O2 Del Method Room Air 12/21/24 15:23 Pertinent Lab Results Pertinent Lab Results: Laboratory Tests 12/20/24 12/20/24 12/21/24 18:57 19:02 03:53 WBC 16.2 H 10.2 RBC 4.16 L 3.57 L Hgb 13.2 11.0 L Hct 36.8 L 31.1 L MCV 88.5 87.1 MCH 31.7 30.8 MCHC 35.9 H 35.4 H RDW 12.5 12.3 Plt Count 221 186 MPV 10.3 10.4 Immature Gran % (Auto) 0.5 H 0.3 Neut % (Auto) 81.2 H 73.3 H Lymph % (Auto) 13.7 L 21.3 [place] % (Auto) 3.8 4.5 Eos % (Auto) 0.4 0.1 Baso % (Auto) 0.4 0.5 Lymph # (Auto) 2.2 2.2 [place] # (Auto) 0.6 0.5 Eos # (Auto) 0.1 0.0 Baso # (Auto) 0.1 0.1 Abs Immat Gran (auto) 0.08 H 0.03 Absolute Neuts (auto) 13.1 H 7.5 Absolute Nucleated RBC 0.000 0.000 Nucleated RBC % (auto) 0.0 0.0 Sodium 139 Potassium 3.9 Chloride 109 H Carbon Dioxide 24 Anion Gap 10 L BUN 7 L Creatinine 0.75 Estim Creat Clear Calc 103.6 Estimated GFR > 60 Random Glucose 91 Calcium 8.9 Magnesium 1.7 Total Bilirubin 0.3 AST 15 ALT 9 Alkaline Phosphatase 49 C-Reactive Protein 0.10 Total Protein 6.8 Albumin 4.1 Urine Color Yellow Urine Appearance Clear Urine pH 5.5 Ur Specific [place] 1.020 Urine Protein Negative Urine Glucose (UA) Negative Urine Ketones Negative Urine Blood Trace H Urine Nitrite Negative Ur Leukocyte Esterase Trace H Urine RBC 0-2 Urine WBC 0-5 Ur Squamous Epith Cells 0-2 Urine Bacteria None Seen Hyaline Casts 0-2 Urine Test NEGATIVE Airway Mallampati Class: II TM Dist: >3cm Neck ROM: Full Assessment and Plan Assessment Anesthesia Assessment: Anesthesia Plan Discussed and Chart Reviewed Final Anesthetic Review Family History of Problems with Anesthesia: No History of Problems with Anesthesia: No NPO: Yes ASA Class: I and Emergency Final Preanesthetic Review: No Changes in Pt Med Stat, Meds/Allgs Chart Reviewed, Consent Obtained/Reviewed and Anes Risks/Benef Reviewed Patient Risk: Low Procedure Risk: Intermediate Anesthetic Plan Anesthetic Plan: GA Disposition: Standard PACU
--- NOTE | 2024-12-21 19:35 | W.PM.OPN ---
Operative Note Operative Note Date of Service: 12/21/24 Narrative: Preop diagnosis--acute appendicitis Postop diagnosis--same Procedure done--laparoscopic appendectomy Surgeon--Konrad Anesthesia--general endotracheal tube anesthesia Patient is a 18-year-old who presented to the emergency room with the abdominal pain in the right lower quadrant and nausea. Elevated white count and CT scan showing slightly thickened appendix maybe early appendicitis as a result comes in now for laparoscopic appendectomy. Findings--patient's uterus was very erythematous on the external aspect but the right and left ovaries were within normal limits and fallopian tube goes well. The appendix did look a little thickened and rigid. This may have just been an early appendicitis. Other than the uterus no other pathology noted Procedure-- Patient was brought to the operative room under Anesthesia guidance intubated. She had compression stockings placed before induction and have it on regular antibiotics. Her abdomen was prepped and draped in set the surgical fashion. An infraumbilical incision was created after numbing up the area with 0.25% Marcaine with epinephrine. Dissection was carried out to the anterior abdominal wall fascia which was grasped with Nilsa's and transected. A 5 mm port was placed which was eventually switched to Reeves trocar. Two 5 mm ports were then placed under direct visualization using local. One in the suprapubic area 1 in the left lower quadrant area. Attention was then focused to the right lower quadrant area after pneumoperitoneum established. The appendix was seen and did look a little thickened and rigid. Attention was now focused to the uterus in the right and left fallopian tube ovaries. The external aspect of the uterus looked a little erythematous. The ovaries and fallopian tubes bilaterally looked fine. Small bowel looked fine. The appendix was grasped and using the [place] an opening in the mesentery at the base was created. The Endo-JAMILA 45 purple load was fired across the base of the appendix. The LigaSure was used to come across on the mesentery. The appendix was removed from the infraumbilical port site. Pneumoperitoneum was reestablished and it was noted that there were some adhesions of the colon cecum area to the anterior abdominal wall and this was taken down with the LigaSure. The ports were then removed under direct visualization after assuring that the mesentery was not bleeding and that the staple line look fine. The infraumbilical port site was then closed with [id number] 0 Vicryl suture and 4-0 Monocryl in a subcuticular fashion was used to approximate the skin edges. At the end of the case all sponge instrument needle counts were correct estimated blood loss was about 3 cc specimens sent was the appendix. Patient was extubated returned stable to recovery room
[2024-12-22 03:46] VITALS: BP 124/70; PULSE 65; RESP 18; TEMP 36.6; O2SAT 100
[2024-12-22] MEDS: 0.9 % Sodium Chloride 1,000 ML 100 ML IVCONT (06:10)
[2024-12-22] MEDS: Piperacillin Sodium/Tazobactam 3.375 GM in 0.9 % Sodium Chloride 50 ML IV (06:11)
[2024-12-22 07:24] VITALS: BP 110/67; PULSE 69; RESP 14; TEMP 36.6; O2SAT 100
[2024-12-22] MEDS: Acetaminophen 325 MG TABLET 650 MG PO (08:14)
--- NOTE | 2024-12-22 10:21 | PM.DS ---
DS: Providers Provider Date of Service: 12/22/24 Date of admission: 12/20/24 23:30 Date of discharge: 12/22/24 Primary care physician: Unknown Physician Admitting clinician: Elizabeth Silvestre Attending physician on discharge: Elizabeth Silvestre DS: Diagnosis Discharge Diagnosis (1) Acute appendicitis: Status: Acute DS: Summary Hospital Course Hospital Course: pt presented with findings consistent of early appendicits and underwent lap appy. did well by pod 1 so dc home with regular diet and bandages intact. po ibuprofen/tylenol and oxycodone prn Status at Discharge Cognitive/behavioral status at discharge: good Functional status at discharge: independent ambulation Overall status at discharge: patient is progressing back to baseline Time Attestation Total time managing care of this patient today: 20 mintues. Discharge Coordination Time (in mins): good Specific discharge activities: no lifting greater than 10 lbs Quality: Safe Use of Opioids Does Pt have an Active Cancer Diagnosis on the Problem List?: No Quality: Stroke Does the patient have a stroke diagnosis?: No Physical Exam Vital Signs: Vital Signs: Last Vital Signs Temp 97.9 F 12/22/24 07:24 Pulse 69 12/22/24 07:24 Resp 14 12/22/24 07:24 BP 110/67 12/22/24 07:24 Pulse Ox 100 12/22/24 07:24 O2 Del Method Room Air 12/22/24 07:24 O2 Flow Rate 2 12/21/24 19:46 FiO2 33 12/21/24 19:46 BMI result Body Mass Index 20.6 Const: General: cooperative, healthy appearing, comfortable and no acute distress Resp: Effort & Inspection: normal respiratory effort Cardio: Rate: regular rate GI: Other: abdomen soft tender at incisions and bandages good Psych: Appearance: grossly normal Mental Status: mental status grossly normal DS: Data Data Completed and Pending Pending studies at discharge: Pending at discharge 12/21/24 19:04 Surgical [PTH] Routine Discharge Plan Discharge Anticipated Discharge Date/Time: 12/22/24 10:25 Patient Disposition: Home, Self-Care Discharge Diagnosis: appendicitis Referrals: Physician,Unknown J [Primary Care Provider, Medical] - 1 Week Discharge Medications: New oxycodone 5 mg Tablet 5 mg PO Q4H PRN (Reason: Pain, Mild (Pain Scale 1-3)) Qty: 10 0RF Rx Instructions: Partial Fill upon patient request. acetaminophen 325 mg Tablet 650 mg PO Q6H PRN (Reason: Pain, Mild 1-3,Fever,Headache) Qty: 10 0RF Continued norethindrone-e.estradiol-iron [07/15 (28)] 1 mg-20 mcg (21)/75 mg (7) tablet 1 tab PO DAILY Discharge Orders: Discharge Order (Routine); Ordered 12/22/24 Ordered By: Elizabeth Silvestre Activity on Discharge: No heavy lifting Stand Alone Forms: Patient Portal Discharge page Print Language: [place] Citizen Care Plan Goals: pt can ambulate no lifting greater than 10 lbs, may shower with bandage in place today and can take off the dressing on monday and keep steristrips on Health Concerns: call MD for increased pain adn fever and redness or drainage at wound Plan of Treatment: increase diet and activity pain meds as needed Assessment: pt stable doing well postoperative lap appendectomy
--- NOTE | 2024-12-22 10:26 | MHC.CM.PN ---
Medically cleared for dc home self care. Family transport.
[2024-12-22 10:42] VITALS: BP 114/61; PULSE 67; RESP 14; TEMP 36.1; O2SAT 100
--- NOTE | 2024-12-23 10:53 | HO.POSTANES ---
Post Anesthesia Evaluation Post Anesthesia Evaluation Date of Service: 12/23/24 Anesthesia: General Endotracheal-GETA Mental Status: Awake Pain Control: Satisfactory Nausea/Vomiting: None Hydration: Adequate Anesthesia-Related Issues: No Anes. Related Issues
== END 2024-12-22 11:27 | disposition home or self-care (01) | DRG 399 ==
LOC: HO.ED 23:17 → HO.EDOVER 23:54 → HO.S3 12-21 08:36
PROVIDERS: Physician Assistant Medical; Admitting Provider Surgery; Emergency Provider Emergency Medicine Emergency Medical Services; Visit Provider Surgery
PROC: 0DTJ4ZZ Resection of Appendix, Percutaneous Endoscopic Approach (ICD-10-PCS; CPT 44970; principal; 2024-12-21 19:00)
DX: K35.80 Unspecified acute appendicitis (principal)
CPT/HCPCS: 44970; 36415; 74176; 80053; 81001; 81025; 83735; 85025; 86140; 88304; 99221; 99285; J0131; J0696; J1100; J1836; J1885; J2003; J2004; J2250; J2405; J2543; J2704; J3010; Q9967

== ENCOUNTER → 2024-12-20 20:08 | Outpatient (BNV) | payer OTHER, SELFPAY | PROVIDERS: Emergency Provider Emergency Medicine Emergency Medical Services; Visit Provider Radiology Diagnostic Radiology | DX: R10.31 Right lower quadrant pain (principal) | CPT/HCPCS: 74176 ==

== ENCOUNTER → 2024-12-20 23:30 | Outpatient (BNV) | payer OTHER, SELFPAY | PROVIDERS: Admitting Provider Surgery; Emergency Provider Emergency Medicine Emergency Medical Services; Visit Provider Surgery | DX: K35.80 Unspecified acute appendicitis (principal) | CPT/HCPCS: 44970; 99024; 99223 ==

== ENCOUNTER 2025-01-03 09:55 | Outpatient (AMB) | payer OTHER, SELFPAY ==
--- OUTSIDE RECORDS SUMMARY | 2024-12-28 23:59 | XMS_ITS | Continuity of Care Document ---
Author Organization [facility] Address [address] [place] [address]- Care Team Providers Care Forensic Specialist Name Role Phone Not on Staff, PCP Primary Care Physician Unavail able Encounter [facility] Date(s): 11/28/24 - 12/28/24 [facility] [address] [place] [address]- Encounter Type: Triage Allergies, Adverse Reactions, Alerts No Known Allergies Immunizations Given and Recorded Vaccine Date Status Refusal Reason Varicella Virus Vaccine 03/23/10 Given Varicella Virus Vaccine 01/18/06 Given Poliovirus Vaccine, Inactivated 03/23/10 Given Poliovirus Vaccine, Inactivated 07/21/05 Given Poliovirus Vaccine, Inactivated 05/17/05 Given Poliovirus Vaccine, Inactivated 02/17/05 Given influenza virus vaccine, inactivated 03/23/10 Give n diphtheria/tetanus/pertussis, acel(DTaP) 03/23/10 Given Measles/Mumps/Rubella Virus Vaccine 03/23/10 Given Measles/Mumps/Rubella Virus Vaccine 01/18/06 Given Pneumococcal Conjugate (PCV7) (oldterm) 09/27/06 G iven Pneumococcal Conjugate (PCV7) (oldterm) 07/21/05 G iven Pneumococcal Conjugate (PCV7) (oldterm) 05/17/05 G iven Pneumococcal Conjugate (PCV7) (oldterm) 02/17/05 G iven Haemophilus B Conj Vaccine (oldterm) 09/27/06 Give n Haemophilus B Conj Vaccine (oldterm) 07/21/05 Give n Haemophilus B Conj Vaccine (oldterm) 05/17/05 Give n Haemophilus B Conj Vaccine (oldterm) 02/17/05 Give n Diphth/Pertussis,Acel/Tetanus (oldterm) 09/27/06 G iven Diphtheria/Tet/Pertussis, Acel (oldterm) 07/21/05 Given Diphtheria/Tet/Pertussis, Acel (oldterm) 05/17/05 Given Diphtheria/Tet/Pertussis, Acel (oldterm) 02/17/05 Given Hepatitis B Vaccine (old term) 07/17/05 Given Hepatitis B Vaccine (old term) 02/17/05 Given Hepatitis B Vaccine (old term) 04 Given Patient Care team information Care Team Personnel Name: Not on Staff, PCP Position: S Physician (General Medicine) Member Role: PCP Care Team Related Persons Name: MARLEEN PIZANO Name: SAM PIZANO Name: DEBBIE PIZANO Insurance Providers Guarantor name: [employer] Health Plan Information #: 1 Payer: [facility] Payer Identifier: [employer] Member Number: [id number] Group Number: [id number] Subscriber Identifier: [id number] Relationship to Subscriber: self Coverage Type: Commercial Managed Care - PPO Coverage Verification Date: [employer] Telecom: [employer] Address:
[2025-01-03 10:06] VITALS: BP 110/62; PULSE 70; BMI 25.2
--- NOTE | 2025-01-03 10:06 | A.OFFVIS_ITS ---
Vital Signs 01/03/25 10:06 Height 5 ft 4 in Weight 147 lb BMI 25.2 BP 110/62 Blood Pressure Location Lt brachial Position Sitting Pulse 70 Intake Visit Reasons: s/p appendectomy 12/20 Intake Note: Patient is seen in office for post op assessment post Appendectomy Laparoscopic. Pt c/o: denies any concerns at the time of visit surgery:12/21/24 (Dr Silvestre) Box Tender Required: No Accompanied by: Self / Same As Patient Allergies No Known Allergies Allergy (Verified 01/03/25 10:08) Medication List - Last Reconciled 01/03/25 by Humberto Blanco MD acetaminophen 650 mg (2 x 325 mg) PO Q6H PRN norethindrone-e.estradiol-iron 1 mg-20 mcg ()/75 mg () (07/15 ()) 1 tab PO DAILY HPI Comments Details: 19-year-old female returning following laparoscopic appendectomy for acute appendicitis performed on 12/21/2024. She was subsequently discharged from the hospital on 12/22/2024. Since her discharge there has been no problems other than mild incisional pain. She is eating well and denies any nausea or vomiting. [facility] Surgical History History of laparoscopic appendectomy (~12/21/24) Social History Household Members: Family and Other Household Members Other:: mother and father Housing: Apartment Do you presently have visiting nurse or other home services: No Patient Tobacco Use Status: Never used Tobacco service: No Physical Exam Vital Signs: Last Vital Signs Pulse 70 01/03/25 10:06 BP 110/62 01/03/25 10:06 BMI result Body Mass Index 25.2 Const General: no acute distress Nutritional Appearance: well nourished Orientation/consciousness: patient oriented x3 Resp Effort & Inspection: normal respiratory effort GI Other: Soft, nondistended, well-healed trocar incisions without hernia or infection. Neuro General: patient oriented x3 Extrem General: Yes normal to inspection Assessment & Plan Assessment & Plan (1) Acute appendicitis: Code(s): K35.80 - Unspecified acute appendicitis Category: Medical Qualifiers: Acute appendicitis type: with localized peritonitis Appendicitis gangrene presence: without gangrene Appendicitis perforation presence: without perforation Appendicitis abscess presence: without abscess Qualified Code(s): K35.30 - Acute appendicitis with localized peritonitis, without perforation or gangrene Plan 19-year-old female status post laparoscopic appendectomy 1 week ago. She tolerated the procedure in the wounds are healing nicely. She may return to normal activity as of 01/06/2025. She should follow up as needed. Coding Level of Care Code Global (12373) Diagnoses Acute appendicitis with localized peritonitis, without perforation, abscess, or gangrene K35.30 Acute appendicitis type: with localized peritonitis Appendicitis gangrene presence: without gangrene Appendicitis perforation presence: without perforation Appendicitis abscess presence: without abscess
--- OUTSIDE RECORDS SUMMARY | 2025-01-03 10:20 | XMS_ITS | Clinical Summary ---
Demographics Address [address] [place] [address] Home Phone Mobile Phone Preferred Language Croatian Marital Status Unknown Taoism Affiliation Unknown Race White Ethnic Group Unknown Author Organization [facility] Address [address] [place] [id number] Phone Care Team Providers Care Butcher Helper Name Role Phone Héctor Hernandez MD Primary Care Provider [phone] Allergies No known active allergies Medications ibuprofen [...] days. 3 Active Needle, Disp, (BD Disp [place]) 25G X 5/8 misc Inject 1 Units [...] Encounters Date Type Department Care Team Description 12/16/2024 Telephone [facility] - [address] [address] Héctor Hernandez MD Letter from Last 3 Months Immunizations Immunization Administration [...] leaky heart valves Maternal Grandmother Kala Redmond Melano krystal Mother Brianna Alive Sister 1 Jacquie Alive [...] 79 06/30/2021 2:50 PM EST Temperature 36.9 C (98.4 F) 12/06/2022 4:03 PM EDT Respiratory Rate - - Oxygen Saturation - - Inhaled Oxygen Concentration - - Weight 49.5 kg (109 lb 3.2 oz) 12/06/2022 4:03 P M EDT Height 160 cm (5' 3 ) 06/30/2021 2:50 PM EST Body Mass Index - - Plan of Treatment Health Maintenance Due Date Last Done Comments Men B Vaccine (1 of 2 - Standard) 2020 COVID-19 Vaccine (3 - season) 2024 01/21/2021, 12/31/2020 Chlamydia and Gonorrhea Screening 06/26/2024 12/06/2022 Influenza Vaccines (#1) 2025 06/30/19, 03/08/2020, 03/23/2010 DTaP,Tdap,and Td Vaccines (7 - Td or [...] Vaccines Completed 03/28/2018, 03/14/20 17 Procedures * Due to [place] [employer] law, this organization might not be sharing sensitive test results. Procedure Name Priority Date/Time Associated Diagnosis Comments SURESWAB (ADV) VAGINITIS PLUS, TMA Routine 12/06/2022 5:02 PM EDT Vaginal discharge from Last 3 Months or Most Recently Relevant to Health Maintenance Results * Due to [place] [employer] law, this organization might not be sharing sensitive test results. * (ABNORMAL) SureSwab Advanced (TMA)- BV, CT/NG, Emeka, Trich (12/06/2022 5:02 PM EDT) BACTERIAL VAGINOSIS TEST POSITIVE(A) (NEG) [facility] Comment: Bacterial vaginosis targets by PCR detected in this patient's sample. Note: This assay uses real time edger machine helper-mediated amplification (TMA) for detection and quantification of ribosomal RNA from bacteria associated with bacterial vaginosis (BV), including Lactobacillus (L. gasseri, L. crispatus, and L. jensenii), Gardnerella vaginalis, and Atopobium vaginae. Emeka Species NEGATIVE (NEG) [facility] Comment: No emeka species group (C. albicans, C. tropicalis, C. parapsilosis, C. dubliniensis) targets by PCR detected in this patient's sample. Emeka Glabrata, LANCE NEGATIVE (NEG) [facility] Comment:No Emeka glabrata targets by PCR detected in this patient's sample. SureSwab, T.vaginalis RNA NEGATIVE (NEG) [facility] Comment: No Trichomonas vaginalis targets by PCR detected in this patient's sample. Note: This assay uses real time edger machine helper-mediated amplification (TMA) for detection and quantification of ribosomal RNA from organisms associated with Emeka species group (C. albicans, C. tropicalis, C. parapsilosis, C. dubliniensis), Emeka glabrata, and Trichomonas vaginalis. Chlamydia Trachomatis, Amplified NEGATIVE (NEG) [facility] Comment: No Chlamydia Trachomatis RNA detected in this patient's sample (REFERENCE RANGE/NORMAL VALUE: NOT DETECTED) Note: This test uses edger machine helper- mediated amplification method to detect rRNA from C. Trachomatis N.GONORRHOEAE AMP PROBE NEGATIVE (NEG) [facility] Comment: No Neisseria Gonorrhoeae RNA detected in this patient's sample (REFERENCE RANGE/NORMAL VALUE: NOT DETECTED) NOTE: This test uses edger machine helper-mediated amplification method to detect rRNA from N.Gonorrhoeae. [...] without risk of sexual abuse. Consult the [facility] if [...] if indicated. Testing performed or reported by [facility], a Service of [facility], [address] [place] [address] Vince Hamilton MD, Solar Installation Technician [facility]# [id number] Swab (Vagina) 12/06/2022 5:0 2 PM EDT 12/06/2022 11:47 PM EDT Anita Peña MD LAB MICROBIOLOGY - GENERAL OR DERABLES Final Result [facility] from Last 3 Months or Most Recently Relevant to Health Maintenance Care Teams Butcher Helper Relationship Specialty Start Date End Date Héctor Hernandez MD [address] [facility] [place] Pool [id number] PCP - General Pediatrics 11/21/24
== END 2025-01-03 10:21 | disposition home or self-care (01) ==
LOC: HO.HGS 09:56
PROVIDERS: Visit Provider Surgery
DX: K35.30 Acute appendicitis with localized peritonitis, without perforation or gangrene (principal)
CPT/HCPCS: 99024

== ENCOUNTER 2025-01-15 08:50 | Outpatient (AMB) | payer OTHER, SELFPAY ==
--- OUTSIDE RECORDS SUMMARY | 2025-01-15 09:14 | XMS_ITS | Clinical Summary ---
Author Organization [facility] Address [address] [place] [id number] Phone Care Team Providers Care Wool Washer Name Role Phone Héctor Hernandez MD Unavailable [phone] Héctor Hernandez MD Primary Care Provider [phone] Allergies No known active allergies Medications BD SAFETYGLIDE NEEDLE 25 gauge x 5/8 Ndle USE DIRECTED TO INJECT TESTOSTERONE VIA SUBCUTANEOUS ROUTE 2 Active needle, disp, 25 gauge (BD REGULAR BEVEL NEEDLES) 25 gauge x 5/8 Ndle Use as directed to INJECT testosterone via subcutaneous route 12 each 3 Active needle, disp, 18 G 18 gauge x 1 1/2 Ndle Use as directed to DRAW UP testosterone weekly 12 each 3 Active syringe, disposable, 1 mL Syrg Use as directed for subcutaneous testoterone injections 12 each 3 Active BD SAFETYGLIDE NEEDLE 18 gauge x 1 1/2 Ndle USE DIRECTED TO DRAW UP TESTOSTERONE WEEKLY 3 Active testosterone cypionate (DEPO-TESTOTERO NE) 200 mg/mL injectionIndica tions:Gender dysphoria of adolescence Inject 0.2 mL (40 mg total) under the skin once a week. 4 mL 5 3 Active Active Problems Problem Noted Date Diagnosed Date Vitamin D insufficiency 11/28/2021 Assessment & Plan (11/28/2021 10:02 AM EDT): Start over the counter Vitamin D 2,000 IU daily. Gender dysphoria of adolescence 07/01/2021 Overview (09/09/2021): refer Cy and his mom to the new [facility] for further exploration of gender affirming/ masculinizing medical therapy Assessment & Plan (03/21/2022 11:10 AM EDT): Continue current dose of testosterone Get labs done in the next few weeks If no abnormalities on labs, can discuss increasing testosterone Follow up 6 months. Assessment & Plan (11/28/2021 10:02 AM EDT): Start Testosterone 40 mg (0.2 mL) weekly via subcutaneous route. Injection teaching by RN Follow up in 2-3 months. Assessment & Plan (09/12/2021 6:08 PM EDT): Thank you for coming in today. We'll see you back in a few weeks. 1. I've given you a bunch of resource materials. Take a look, [facility], dev, ask questions and we'll discuss next time. Or, drop me a note in the patient portal. 2. Labwork: Please get labs done at least one week prior to our next appointment. We will go over the results then unless something is really abnormal. Given resources, testosterone information, HOC info, TG info Patellofemoral syndrome of both knees 07/30/2020 Overview (09/09/2021): 07/2020: Suspeced and confirmed by [facility] consult 01/2021- Recommend ibuprofen 400mg with food PRN and OTC knee supports for now, PT recommended by Ortho Acne vulgaris 05/06/2019 Assessment & Plan (03/21/2022 11:10 AM EDT): Continue CeraVe If acne is getting worse, call for prescription-strength medication Immunizations Immunization Administration Dates Next Due DTaP 03/23/2010, 7,07/21/2005,05/17,02/17/2005 HPV9 03/28/2018,03/14/2017 Hepatitis A, ped/adol, 2 dose 03/28/2018, 017 Hepatitis B 07/17/2005,02/17/2005,2004 Hib, unspecified formulation 09/27/2006, 07/21/2005,05/17/2005,02/17 Hib,HbOC 09/27/2006, 6,05/17/2005,02/17 IPV 03/23/2010, 6,05/17/2005,02/17 Influenza Quadrivalent Prese rvative Free IM 06/30/2021,03/08/2020 MMR 03/23/2010,01/18/2006 Meningococcal MCV4P 03/14/2017 Pneumococcal conjugate PCV13 09/27/2006, 07/21/2005,05/17/2005,02/17 Tdap 03/14/2017 Varicella 03/23/2010,01/18/2006 Social History Tobacco Use Types Packs/Day Years Used Date Smoking Tobacco: Never Smokeless Tobacco: Never Tobacco Cessation:Counseling Given: Not Answered Alcohol Use Standard Drinks/Week Comments Never 0 (1 standard drink = 0.6 oz pur e alcohol) Education Answer Date Recorded Are you interested in more education? Not on ed e 10/22/2022 Are you concerned about learning? Not on file 10/22/2022 No 10/22/2022 No 10/22/2022 Digital Access Answer Date Recorded No 11/20/2022 No 11/20/2022 Reliable internet access at home? Not on file 11/20/2022 Device with a working camera? Not on file Comments Unknown Sex and Gender Information Value Date Recorded Sex Assigned at Female 08/12/2021 12:15 PM EST Legal Sex Female 12:14 PM EST Gender Identity Male 08/12/2021 12:15 PM EST Sexual Orientation Not on file Last Filed Vital Signs Vital Sign Reading Time Taken Comments Blood Pressure 128/68 11/01/2022 3:40 PM EDT Pulse 81 11/01/2022 3:40 PM EDT Temperature - - Respiratory Rate - - Oxygen Saturation 97% 11/01/2022 3:40 PM EDT Inhaled Oxygen Concentration - - Weight 49.9 kg (110 lb) 11/01/2022 3:40 PM EDT Height 162.6 cm (5' 4 ) 11/01/2022 3:40 PM EDT Body Mass Index 18.88 11/01/2022 3:40 PM EDT Plan of Treatment Health Maintenance Due Date Last Done Comments SMOKING Hx and SMOKELESS TOBACCO SCREENING 2017 CHLAMYDIA SCREENING 2020 MENINGOCOCCAL VACCINES (B) (1 of 2 - Standard) 2020 ADOLESCENT UNIVERSAL LIPID SCREENING 2021 DEPRESSION SCREENING 09/09/2022 09/09/2021 DEVELOPMENTAL/BEHAVIORAL SCREENING (PHQ, PSC, or SWYC) 09/09/2022 09/09/2021 HEPATITIS C SCREENING 2022 HIV ONE-TIME SCREENING (18-65 YEARS) 2022 COVID-19 VACCINE ( season) 2024 01/21/2021, 12/31/2020 COMBINED DTaP,Tdap,Td (7 - Td or Tdap) 03/14/2027 03/14/2017, 03/23/2010, 09/27/2006, Additional history exists HIB VACCINES Completed 09/27/2006, 09/2006, 07/21/2005, Additional history exists PNEUMOCOCCAL VACCINES (0-49 years) Completed 09/27/2006, 07/21/2005, 05/17/2005, Additional history exists MMR VACCINES Completed 03/23/2010, 01/18/2006 VARICELLA VACCINES Completed 03/23/2010, 01/18/2006 MENINGOCOCCAL VACCINES (ACWY) Aged Out 03/14/2017 No longer eligible based on patient's age to complete this topic HEPATITIS A VACCINES Completed 03/28/2018, 03/14/20 17 HPV VACCINES Completed 03/28/2018, 03/14/2017 Medical Devices Not on file Insurance [facility] P[employer] PPO [employer] PPO Care Teams Wool Washer Relationship Specialty Start Date End Date Héctor Hernandez MD [address] [place] [address] [place] [address] PCP - General Pediatrics 04/29/22 Héctor Hernandez MD [address] [place] [address] [place] [address] Consulting Provider Pediatrics 11/28/21 Additional Source Comments The information contained in this document represents components of the legal health record. It is not the complete legal health record.[facility]
--- OUTSIDE RECORDS SUMMARY | 2025-01-15 09:14 | XMS_ITS | Clinical Summary ---
Demographics Address [address] [place] [address] Home Phone Mobile Phone Preferred Language Portuguese Marital Status Unknown Mormon Affiliation Unknown Race White Ethnic Group Unknown Author Organization [facility] Address [address] [place] [address] Phone Care Team Providers Care Classroom Monitor Name Role Phone Héctor Hernandez MD Primary Care Provider [phone] Allergies No known active allergies Medications ibuprofen [...] days. 3 Active Needle, Disp, (BD Disp [place]) 25G X 5/8 misc Inject 1 Units [...] Type Department Care Team Description 12/16/2024 Telephone [facility] - [address] [address] Héctor Hernandez MD Letter from [...] 03/28/2018, 03/14/20 17 Procedures * Due to [place] [employer] law, this organization might not be sharing sensitive test results. Procedure Name Priority Date/Time Associated Diagnosis Comments SURESWAB (ADV) VAGINITIS PLUS, TMA Routine 12/06/2022 5:02 PM EDT Vaginal discharge from Last 3 Months or Most Recently Relevant to Health Maintenance Results * Due to [place] [employer] law, this organization might not be sharing sensitive test results. * (ABNORMAL) SureSwab Advanced (TMA)- BV, CT/NG, Emeka, Trich (12/06/2022 5:02 PM EDT) BACTERIAL VAGINOSIS TEST POSITIVE(A) (NEG) [facility] Comment: Bacterial vaginosis targets by PCR detected in this patient's sample. Note: This assay uses real time pheresis specialist-mediated amplification (TMA) for detection and quantification of ribosomal RNA from bacteria associated with bacterial vaginosis (BV), including Lactobacillus (L. gasseri, L. crispatus, and L. jensenii), Gardnerella vaginalis, and Atopobium vaginae. Emeka Species NEGATIVE (NEG) [facility] Comment: No emeka species group (C. albicans, C. tropicalis, C. parapsilosis, C. dubliniensis) targets by PCR detected in this patient's sample. Emeka Glabrata, LANCE NEGATIVE (NEG) [facility] Comment:No Emeka glabrata targets by PCR detected in this patient's sample. SureSwab, T.vaginalis RNA NEGATIVE (NEG) [facility] Comment: No Trichomonas vaginalis targets by PCR detected in this patient's sample. Note: This assay uses real time pheresis specialist-mediated amplification (TMA) for detection and quantification of ribosomal RNA from organisms associated with Emeka species group (C. albicans, C. tropicalis, C. parapsilosis, C. dubliniensis), Emeka glabrata, and Trichomonas vaginalis. Chlamydia Trachomatis, Amplified NEGATIVE (NEG) [facility] Comment: No Chlamydia Trachomatis RNA detected in this patient's sample (REFERENCE RANGE/NORMAL VALUE: NOT DETECTED) Note: This test uses pheresis specialist- mediated amplification method to detect rRNA from C. Trachomatis N.GONORRHOEAE AMP PROBE NEGATIVE (NEG) [facility] Comment: No Neisseria Gonorrhoeae RNA detected in this patient's sample (REFERENCE RANGE/NORMAL VALUE: NOT DETECTED) NOTE: This test uses pheresis specialist-mediated amplification method to detect rRNA from N.Gonorrhoeae. [...] without risk of sexual abuse. Consult the [facility] if [...] if indicated. Testing performed or reported by [facility], a Service of [facility], [address] [place] [address] Vince Hamilton MD, Graduate Studies Dean [facility]# [id number] Swab (Vagina) 12/06/2022 5:0 2 PM EDT 12/06/2022 11:47 PM EDT Anita Peña MD LAB MICROBIOLOGY - GENERAL OR DERABLES Final Result [facility] from Last 3 Months or Most Recently Relevant to Health Maintenance Care Teams Classroom Monitor Relationship Specialty Start Date End Date Héctor Hernandez MD [address] [facility] [place] [id number] PCP - General Pediatrics 11/21/24
--- NOTE | 2025-01-15 10:08 | AM.OFFVISNUR ---
Intake Visit Reasons: protruding suture Allergies No Known Allergies Allergy (Verified 01/03/25 10:08) Nursing Note Pt reports to the office for wound check of umbilical incision. She had called stating she had 2 dissolving sutures that were protruding so this appt was made with RN. Upon arrival, pt had one suture protruding from the left end of the incision. She states the other one fell off last night. The suture was identified, grasped with forceps and trimmed at the level of the skin. No redness, no drainage, no swelling edges well approximated and closed. Wound is healing well. Pt advised to call if she has any further problems or questions. She understands and will do so. Coding Level of Care Code Established Pt Est Pt Level 1 (58627) Patient Type Established History Problem Focused Exam Problem Focused Medical Decision Making Straight Forward Time Spent (min) 10 Comment trimming of dissolving suture
== END 2025-01-15 09:59 | disposition home or self-care (01) ==
LOC: HO.HGS 08:51
PROVIDERS: Visit Provider Surgery
DX: Z48.89 Encounter for other specified surgical aftercare (principal)
CPT/HCPCS: 99024